=== PATIENT | female | born 1980 | race Two or more races ===

== ENCOUNTER 2025-05-09 18:37 | Emergency (ER) | payer MEDICAID, OTHER ==
[~2025-05-09] VITALS: Ht 152.4 cm; Wt 72.6 kg
[2025-05-09] MEDS ORDERED: ALPRAZOLAM 0.5 MG TABLET ONE (20:05)
[2025-05-09] MEDS: ALPRAZOLAM 0.5 MG TABLET PO ONE (20:09)
[2025-05-09 20:30] VITALS: BP 127/87; TEMP 97.4; O2SAT 99
[2025-05-09] MEDS ORDERED: AMLO10TA4 PO (20:34)
== END 2025-05-09 20:44 | disposition home or self-care (01) ==
LOC: ER 18:44
DX: I10 Essential (primary) hypertension (principal); R00.2 Palpitations; Z60.2 Problems related to living alone